=== PATIENT | female | born 1945 | race Caucasian/White ===

== ENCOUNTER → 2017-12-22 | Outpatient (CLI) | payer OTHER | LOC: FIMAGING 08:22 | PROVIDERS: ATTEND Neurological Surgery | PROC: CP151ZZ Planar Nuclear Medicine Imaging of Spine using Technetium 99m (Tc-99m) (ICD-10-PCS; principal; 2017-12-22) | DX: M47.26 Other spondylosis with radiculopathy, lumbar region (principal); M47.24 Other spondylosis with radiculopathy, thoracic region; M48.061 Spinal stenosis, lumbar region without neurogenic claudication; M48.04 Spinal stenosis, thoracic region | CPT/HCPCS: 78300; A9503 ==